=== PATIENT | female | born 1990 | race Hispanic/Latino ===

== ENCOUNTER 2018-01-16 14:20 | Emergency (ER) | payer MEDICAID ==
[2018-01-16] MEDS ORDERED: ONDANSETRON HCL MDV 20ML 2 MG/ML VIAL ONE (14:38)
[2018-01-16] MEDS ORDERED: SODIUM CHLORIDE 0.9% 1000ML 1,000 ML IV ONE (14:38)
== END 2018-01-16 16:04 | disposition home or self-care (01) ==
LOC: EDH 14:20
DX: K52.9 Noninfective gastroenteritis and colitis, unspecified (principal); E86.9 Volume depletion, unspecified
CPT/HCPCS: 96361; 96374; 99284; J7030

== ENCOUNTER 2018-02-06 07:00 | Day surgery (SDC) | payer MEDICAID ==
[2018-02-01 11:20] VITALS: BP 121/70
[2018-02-01 11:24] LABS: BASOPHILS % (AUTO) 0.2 % (0.0-5.0); EOSINOPHILS % (AUTO) 1.1 % (0.0-8.0); HEMATOCRIT 35.3 % (36-48); LYMPHOCYTES % (AUTO) 25.9 % (21.0-51.0); MEAN CORPUSCULAR HEMOGLOBIN 30.7 pg (27.0-33.0); MEAN CORPUSCULAR HGB CONC 35.3 g/dL (32.0-36.0); MEAN CORPUSCULAR VOLUME 86.9 fL (79-99); MONOCYTES % (AUTO) 4.3 % (3.0-13.0); NEUTROPHILS % (AUTO) 68.5 % (40.0-77.0); PLATELET COUNT (AUTO) 281 K/uL (130-400); RED BLOOD CELL COUNT(AUTO) 4.06 MIL/uL (4.00-5.50); RED CELL DISTRIBUTION WIDTH 13.2 % (11.0-15.5); WHITE BLOOD COUNT (AUTO) 11.1 K/uL (4.8-10.8)
[~2018-02-06] VITALS: Ht 170.2 cm; Wt 115.8 kg
[2018-02-06 07:20] VITALS: BP 101/59
[2018-02-06] MEDS ORDERED: CEFAZOLIN SODIUM 1 GM VIAL ONE (07:30)
[2018-02-06] MEDS ORDERED: LACTATED RINGERS 1000ML 1,000 ML IV ONE (07:30)
[2018-02-06] MEDS ORDERED: SENSORCAINE/DEXT/PF 0.75% 2ML AMP IJ ONE (08:30)
[2018-02-06] MEDS ORDERED: CEFAZOLIN SODIUM 1 GM VIAL IVP ONE (08:30)
[2018-02-06] MEDS ORDERED: DEXAMETHASONE SOD PHOSPHATE 10MG/ML 1ML VIAL ONE (08:52)
[2018-02-06] MEDS ORDERED: ONDANSETRON HCL 4 MG/2 ML VIAL ONE (08:52)
[2018-02-06] MEDS ORDERED: PHENYLEPHRINE HCL 10 MG/ML 1ML VIAL IV ONE (08:52)
== END 2018-02-06 13:54 | disposition home or self-care (01) ==
LOC: DAH 07:00 → LDH 08:00 → DAH 13:54
PROVIDERS: ATTEND Specialist
DX: O34.32 Maternal care for cervical incompetence, second trimester (principal); Z3A.14 14 weeks gestation of pregnancy; Z98.890 Other specified postprocedural states
CPT/HCPCS: 36415; 59320; 85025; A4218; A4510; A4600; A4606; J0690 ×2; J1100; J2370; J2405; J3490; J7120 ×2

== ENCOUNTER 2018-02-08 12:53 | Emergency (ER) | payer MEDICAID ==
[2018-02-08] MEDS ORDERED: DIPHENHYDRAMINE HCL 25 MG CAPSULE ONE (13:22)
[2018-02-08] MEDS ORDERED: METOCLOPRAMIDE 10 MG TABLET ONE (13:22)
[2018-02-08 13:26] LABS: BASOPHILS % (AUTO) 0.2 % (0.0-5.0); EOSINOPHILS % (AUTO) 1.6 % (0.0-8.0); LYMPHOCYTES % (AUTO) 24.4 % (21.0-51.0); MEAN CORPUSCULAR HEMOGLOBIN 30.7 pg (27.0-33.0); MEAN CORPUSCULAR HGB CONC 35.3 g/dL (32.0-36.0); MEAN CORPUSCULAR VOLUME 86.9 fL (79-99); MONOCYTES % (AUTO) 4.4 % (3.0-13.0); NEUTROPHILS % (AUTO) 69.4 % (40.0-77.0); PLATELET COUNT (AUTO) 291 K/uL (130-400); RED BLOOD CELL COUNT(AUTO) 3.91 MIL/uL (4.00-5.50); RED CELL DISTRIBUTION WIDTH 13.3 % (11.0-15.5); WHITE BLOOD COUNT (AUTO) 10.5 K/uL (4.8-10.8)
[2018-02-08 13:34] LABS: CREATININE 0.6 mg/dL (0.5-1.5)
[2018-02-08 13:39] LABS: APPEARANCE,URINE Cloudy (CLEAR); BILIRUBIN,URINE Negative (NEGATIVE); COLOR,URINE Yellow (YELLOW); GLUCOSE, URINE (UA) Negative (NEGATIVE); KETONES,URINE Negative (NEGATIVE); LEUKOCYTE ESTERASE ,URINE Negative (NEGATIVE); NITRATE,URINE Negative (NEGATIVE); OCCULT BLOOD,URINE Negative (NEGATIVE); PROTEIN,URINE Negative (NEGATIVE)
[2018-02-08 13:40] LABS: BACTERIA,URINE Rare /HPF (None Seen); RBC,URINE 0-1 /HPF (0-1); SQUAMOUS EPITHELIAL CELL,UR Rare /HPF (0-2); WBC,URINE 0-1 /HPF (0-1)
[2018-02-08] MEDS ORDERED: ACETAMINOPHEN 325 MG TAB ONE (13:43)
== END 2018-02-08 14:42 | disposition home or self-care (01) ==
LOC: EDH 12:53
DX: O26.892 Other specified pregnancy related conditions, second trimester (principal); R51 Headache; Z3A.14 14 weeks gestation of pregnancy
CPT/HCPCS: 36415; 80048; 81001; 85025; 99284; Q0163

== ENCOUNTER 2018-06-12 15:12 | Inpatient (IN) | payer MEDICAID, OTHER ==
[~2018-06-12] VITALS: Ht 170.2 cm; Wt 120.7 kg
[2018-06-12 15:52] LABS: APPEARANCE,URINE Clear (CLEAR); BILIRUBIN,URINE Negative (NEGATIVE); COLOR,URINE Yellow (YELLOW); GLUCOSE, URINE (UA) 250 mg/dL (NEGATIVE); KETONES,URINE >=80 mg/dL (NEGATIVE); LEUKOCYTE ESTERASE ,URINE Negative (NEGATIVE); NITRATE,URINE Negative (NEGATIVE); OCCULT BLOOD,URINE Negative (NEGATIVE); PROTEIN,URINE Negative (NEGATIVE); UROBILINOGEN,URINE 0.2 mg/dL (0.2-1.0)
[2018-06-12 16:16] LABS: BACTERIA,URINE Few /HPF (None Seen); MUCUS,URINE Moderate LPF (None Seen)
[2018-06-12 16:17] LABS: RBC,URINE 0-1 /HPF (0-1); WBC,URINE 0-1 /HPF (0-1)
[2018-06-12] MEDS ORDERED: LACTATED RINGERS 1000ML 1,000 ML IV PRN (16:31)
[2018-06-12] MEDS ORDERED: AMPICILLIN 2GM+NS 100ML 100 ML IV ONE (16:34)
[2018-06-12] MEDS ORDERED: TERBUTALINE SULFATE VIAL 1MG/ML SQ ONE (16:35)
[2018-06-12] MEDS ORDERED: DEXAMETHASONE SOD PHOSPHATE 4 MG/ML 1ML VIAL ONE (16:35)
[2018-06-12] MEDS ORDERED: TERBUTALINE SULFATE VIAL 1MG/ML SQ PRN (16:45)
[2018-06-12 16:55] LABS: HEMATOCRIT 32.5 % (36-48); MEAN CORPUSCULAR HEMOGLOBIN 29.3 pg (27.0-33.0); MEAN CORPUSCULAR HGB CONC 34.2 g/dL (32.0-36.0); MEAN CORPUSCULAR VOLUME 85.9 fL (79-99); PLATELET COUNT (AUTO) 248 K/uL (130-400); RED BLOOD CELL COUNT(AUTO) 3.79 MIL/uL (4.00-5.50); RED CELL DISTRIBUTION WIDTH 14.3 % (11.0-15.5); WHITE BLOOD COUNT (AUTO) 10.9 K/uL (4.8-10.8)
[2018-06-12] MEDS: DEXAMETHASONE SOD PHOSPHATE 4 MG/ML 1ML VIAL IM SCH ×2 (17:14→22:53)
[2018-06-12] MEDS: AMPICILLIN 2GM+NS 100ML 100 ML IV SCH ×2 (17:15→22:53)
[2018-06-12] MEDS ORDERED: MAGNESIUM SULFATE 1,000 ML IV PRN (21:42)
[2018-06-12] MEDS ORDERED: MAGNESIUM 4GM PREMIX 100ML 100 ML IV SCH (21:45)
[2018-06-12] MEDS ORDERED: BUTORPHANOL TARTRATE 2 MG/ML IVP ONE (21:45)
[2018-06-12] MEDS ORDERED: CALCIUM GLUCONATE 1 GM/10 ML VIAL IV PRN (21:45)
[2018-06-13] MEDS: AMPICILLIN 2GM+NS 100ML 100 ML IV SCH ×3 (04:55→22:58)
[2018-06-13] MEDS: DEXAMETHASONE SOD PHOSPHATE 4 MG/ML 1ML VIAL IM SCH ×2 (04:55→11:00)
[2018-06-13 06:58] LABS: RAPID PLASMA REAGIN NONREACTIVE (NONREACTIVE)
[2018-06-13] MEDS ORDERED: PROMETHAZINE HCL 25 MG/ML 1ML AMPULE IM ONE (10:56)
[2018-06-13] MEDS ORDERED: MEPERIDINE-PF 50 MG/ML SYG ONE (10:56)
[2018-06-13] MEDS ORDERED: MEPERIDINE-PF 50 MG/ML SYG IVP SCH (11:00)
[2018-06-13] MEDS ORDERED: PROMETHAZINE HCL 25 MG/ML 1ML AMPULE IM SCH (11:00)
[2018-06-14] MEDS: AMPICILLIN 2GM+NS 100ML 100 ML IV SCH (04:41)
[2018-06-14 07:28] LABS: HEPATITIS Bs ANTIGEN SCREEN P Negative (Negative)
== END 2018-06-14 12:00 | disposition home or self-care (01) | DRG 833 ==
LOC: LDH 15:12 → OBSVTOIN 15:12 → INTOOBSV 15:12
PROVIDERS: ADMIT Specialist; ATTEND Specialist
DX: O34.33 Maternal care for cervical incompetence, third trimester (principal); Z3A.32 32 weeks gestation of pregnancy; Z83.3 Family history of diabetes mellitus; Z82.49 Family history of ischemic heart disease and other diseases of the circulatory system
CPT/HCPCS: 36415; 81001; 83735; 85027; 86592; 86701; 86850; 86900; 86901; 87340; 87390; 96360; 96361; 96372; J0290; J0595; J1100; J2175; J2550; J3105; J3475; J7120

== ENCOUNTER 2023-09-20 08:20 | Emergency (ER) | payer BC, MEDICAID ==
[~2023-09-20] VITALS: Ht 170.2 cm; Wt 81.6 kg
[2023-09-20 08:54] LABS: HEMATOCRIT 28.2 % (36-48); MEAN CORPUSCULAR HEMOGLOBIN 22.4 pg (27.0-33.0); MEAN CORPUSCULAR HGB CONC 29.8 g/dL (32.0-36.0); MEAN CORPUSCULAR VOLUME 75.2 fL (79-99); RED BLOOD CELL COUNT(AUTO) 3.75 MIL/uL (4.00-5.50); WHITE BLOOD COUNT (AUTO) 6.9 K/uL (4.8-10.8)
[2023-09-20 08:55] LABS: BASOPHILS # (AUTO) 0.03 K/uL (0.00-0.20); BASOPHILS % (AUTO) 0.4 % (0.0-5.0); EOSINOPHILS % (AUTO) 1.4 % (0.0-8.0); IMMATURE GRANULOCYTE ABSOLUTE 0.03 K/uL (0-1); LYMPHOCYTES # (AUTO) 2.5 K/uL (1.0-4.8); LYMPHOCYTES % (AUTO) 36.3 % (21.0-51.0); MONOCYTES # (AUTO) 0.4 K/uL (0.1-1.0); MONOCYTES % (AUTO) 6.2 % (3.0-13.0); NEUTROPHILS # (AUTO) 3.8 K/uL (1.8-7.7); NEUTROPHILS % (AUTO) 55.3 % (40.0-77.0); PLATELET COUNT (AUTO) 356 K/uL (130-400); RED CELL DISTRIBUTION WIDTH 16.1 % (11.0-15.5)
[2023-09-20 09:01] LABS: APPEARANCE,URINE CLEAR (CLEAR); BILIRUBIN,URINE NEGATIVE (NEGATIVE); COLOR,URINE YELLOW (YELLOW); GLUCOSE, URINE (UA) NEGATIVE (NEGATIVE); KETONES,URINE NEGATIVE (NEGATIVE); LEUKOCYTE ESTERASE ,URINE NEGATIVE Leu/uL (NEGATIVE); NITRATE,URINE NEGATIVE (NEGATIVE); OCCULT BLOOD,URINE NEGATIVE (NEGATIVE); PH,URINE 6.5 (5.0-8.0); PROTEIN,URINE 20 mg/dL (NEGATIVE); UROBILINOGEN,URINE 0.2 mg/dL (0.2-1.0)
[2023-09-20 09:05] LABS: HCG,QUALITATIVE URINE POSITIVE (NEGATIVE)
[2023-09-20 09:06] LABS: ADD UA MICROSCOPIC YES
[2023-09-20 09:07] LABS: BACTERIA,URINE RARE /HPF (None Seen); MUCUS,URINE FEW LPF (None Seen); RBC,URINE 0-1 /HPF (0-1); SQUAMOUS EPITHELIAL CELL,UR RARE /HPF (0-2)
[2023-09-20 09:08] LABS: ALBUMIN 3.6 g/dL (3.5-5.0); BILIRUBIN,TOTAL 0.6 mg/dL (0.2-1.0); CREATININE 0.6 mg/dL (0.5-1.5); POTASSIUM 3.9 mmol/L (3.5-5.1); TOTAL PROTEIN, SERUM 7.7 g/dL (6.0-8.3)
[2023-09-20 12:30] VITALS: BP 102/84; PULSE 74; RESP 18; O2SAT 98
[2023-09-20] MEDS ORDERED: PREN1CAP37 PO (12:55)
== END 2023-09-20 13:31 | disposition home or self-care (01) ==
LOC: EDH 08:20
DX: R10.2 Pelvic and perineal pain (principal); K59.00 Constipation, unspecified; Z90.49 Acquired absence of other specified parts of digestive tract
CPT/HCPCS: 36415; 76801; 80053; 81001; 81025; 83690; 84702; 85025